=== PATIENT | female | born 1955 | race Caucasian/White ===

== ENCOUNTER 2016-08-23 10:45 | Outpatient (CLI) | payer MEDICARE | END 2016-08-23 10:46 | disposition home or self-care (01) | DX: E03.9 Hypothyroidism, unspecified (principal); I10 Essential (primary) hypertension; E10.40 Type 1 diabetes mellitus with diabetic neuropathy, unspecified; E10.319 Type 1 diabetes mellitus with unspecified diabetic retinopathy without macular edema; Z79.899 Other long term (current) drug therapy ==

== ENCOUNTER 2016-09-03 13:20 | Outpatient (CLI) | payer MEDICARE | END 2016-09-03 13:21 | disposition home or self-care (01) | DX: Z12.31 Encounter for screening mammogram for malignant neoplasm of breast (principal) ==

== ENCOUNTER 2018-01-30 19:56 | Emergency (ER) | payer MEDICARE ==
[2018-01-30] MEDS ORDERED: BENZONATATE 100 MG CAPSULE PO STA (20:12)
--- NOTE | 2018-01-30 20:14 | ED Physician Documentation ---
PD HPI URI - Stated complaint Stated Complaint: Congestion - Chief complaint Chief Complaint: Resp - History of Present Illness Timing duration: Days (3) Timing details: Gradual onset Severity Comments: mild Associated symptoms: Ear pain, Nasal congestion, Rhinorrhea, Dry cough. No: Fever, Chills, Sinus pain, Productive cough, Hemoptysis, Chest pain, Bilateral edema, Unilateral edema Contributing factors: No: Sick contact, COPD / asthma Improves by: Nothing Similar symptoms before: No diagnosis Recently seen: Not recently seen - Additional information Additional information: 62-year-old female presents the emergency department with 3 days of nasal congestion, ear pain, cough and sore throat. The patient had an episode of shortness of breath which cleared spontaneously. The patient denies chest pain , dyspnea on exertion, peripheral edema. Currently symptoms are described as mild. No other associated symptoms Review of Systems Constitutional: reports: Fatigue. denies: Fever, Chills Eyes: denies: Discharge Ears: reports: Ear pain Nose: reports: Rhinorrhea / runny nose, Congestion Throat: reports: Sore throat Cardiac: denies: Chest pain / pressure, Pedal edema Respiratory: reports: Cough. denies: Dyspnea Skin: denies: Rash Musculoskeletal: denies: Neck pain Immunocompromised: denies: Chemotherapy PD PAST MEDICAL HISTORY - Past Medical History Past Medical History: Yes Cardiovascular: Deep vein thrombosis, Murmur Respiratory: Pneumonia Endocrine/Autoimmune: Type 1 diabetes, HyPOthyroidism GI: None : Kidney stones HEENT: Other Psych: Depression Musculoskeletal: None Derm: None - Past Surgical History Past Surgical History: Yes Ortho: Amputation, Other Derm: Skin grafts, Debridement - Present Medications Home Medications: Ambulatory Orders Medication Instructions Recorded Confirmed Aspirin 1 tab PO DAILY 09/13/15 04/11/16 Hydrochlorothiazide 12.5 mg PO DAILY 09/13/15 04/11/16 Insulin Glargine [Lantus Solostar] 10 units SQ QPM 09/13/15 01/09/16 Insulin Glargine [Lantus Solostar] 20 units SQ QDBREAKFAST 09/13/15 04/11/16 Insulin Lispro [Humalog Kwikpen 5 - 10 units SQ DAILY 09/13/15 04/11/16 U-100] Levothyroxine Sodium 112 mcg PO DAILY 09/13/15 04/11/16 Lisinopril 5 mg PO DAILY 09/13/15 04/11/16 Cholecalciferol (Vitamin D3) 1 cap PO DAILY 09/14/15 04/11/16 [Vitamin D] Multivitamin [Multivitamins] 1 cap PO DAILY 09/14/15 04/11/16 Bacillus Coagulans [Probiotic] 1 each PO DAILY 01/09/16 04/11/16 Ibuprofen 400 mg PO QPM 01/09/16 04/11/16 Benzonatate [Tessalon Perle] 100 - 200 mg PO TID PRN #30 capsule 01/30/18 - Allergies Allergies/Adverse Reactions: Allergies Allergy/AdvReac Type Severity Reaction Status Date / Time oxycodone HCl * Allergy Rash Verified 01/30/18 20:08 [From Percodan] oxycodone terephthalate * Allergy Rash Verified 01/30/18 20:08 [From Percodan] amoxicillin trihydrate * AdvReac Nausea Verified 01/30/18 20:08 [From Augmentin] potassium clavulanate * AdvReac Nausea Verified 01/30/18 20:08 [From Augmentin] - Social History Does the pt smoke?: No Smoking Status: Never smoker Does the pt drink ETOH?: Yes Does the pt have substance abuse?: No - POLST Patient has POLST: No PD ED PE NORMAL - General General: Alert and oriented X 3, No acute distress, Well developed/nourished - HEENT HEENT: Atraumatic, PERRL, EOMI, Ears normal, Moist mucous membranes - Neck Neck: Supple, no meningeal sign - Cardiac Cardiac: RRR, Strong equal pulses - Respiratory Respiratory: No respiratory distress, Clear bilaterally - Derm Derm: Normal color - Extremities Extremities: No deformity, No edema - Neuro Neuro: Alert and oriented X 3, Normal speech - Psych Psych: Normal mood Results - Vitals Vitals: Vital Signs - 24 hr 01/30/18 19:59 Temperature 36.6 C Heart Rate 95 Respiratory 18 Rate Blood Pressure 144/75 H O2 Saturation 97 Oxygen O2 Source Room air - Rads (name of study) CXR Radiology: Final report received PD MEDICAL DECISION MAKING - ED course ED course: The patient's symptoms seem to represent a viral process and the patient appears appropriate for discharge home and outpatient management. I discussed with the patient warning signs for decompensation and recommended returning to the emergency department immediately for any worsening or any concerns - Sepsis Event Vital Signs: Vital Signs - 24 hr 01/30/18 19:59 Temperature 36.6 C Heart Rate 95 Respiratory 18 Rate Blood Pressure 144/75 H O2 Saturation 97 Oxygen O2 Source Room air Departure - Departure Disposition: 01 Home, Self Care Clinical Impression: URI (upper respiratory infection) Qualifiers: URI type: unspecified viral URI Qualified Code(s): J06.9 - Acute upper respiratory infection, unspecified Condition: Good Instructions: ED Upper Resp Infec No Abx Tx Follow-Up: Anca Hamilton PA-C [Primary Care Provider] - Within 1 week Prescriptions: Benzonatate [Tessalon Perle] 100 - 200 mg PO TID PRN #30 capsule PRN Reason: Cough Comments: Please return to the ED for worsening symptoms or any concerns
--- NOTE | 2018-01-30 20:53 | XRAY Report ---
Procedure Date: 01/30/2018 Accession Number: [id number] / [id number] Procedure: XR - Chest 2 View X-Ray CPT Code: 35359 FULL RESULT: EXAM: CHEST RADIOGRAPHY EXAM DATE: 01/30/2018 08:35 PM. CLINICAL HISTORY: Cough, sob. COMPARISON: CHEST 2 VIEW PA/LAT 10/19/2013. TECHNIQUE: 2 views. FINDINGS: Lungs/Pleura: No focal opacities evident. No pleural effusion. No pneumothorax. Normal volumes. Mediastinum: Heart and mediastinal contours are unremarkable. Other: None. IMPRESSION: Normal 2-view chest radiography. RADIA
[2018-01-30 21:04] VITALS: BP 127/71
== END 2018-01-30 21:05 | disposition home or self-care (01) ==
LOC: ED 19:56
DX: J06.9 Acute upper respiratory infection, unspecified (principal); E10.9 Type 1 diabetes mellitus without complications; E03.9 Hypothyroidism, unspecified; Z79.82 Long term (current) use of aspirin; Z86.718 Personal history of other venous thrombosis and embolism
CPT/HCPCS: 71046; 99283; A9270

== ENCOUNTER 2018-07-30 16:03 | Outpatient (CLI) | payer MEDICARE ==
[2018-07-30 16:14] LABS: HGB - HEMOGLOBIN 12.9 g/dL (12.0-16.0)
[2018-07-30 16:30] LABS: CREATININE,URINE 60.9 mg/dL; MICROALBUM/CREATININE RATIO,UR 4.9 ug/mg (<30.0); MICROALBUMIN,URINE 0.3 mg/dL (0-300.0)
[2018-07-30 16:32] LABS: HB2 TOTAL 13.6 g/dL; HEMOGLOBIN A1C 1.08 g/dL; HEMOGLOBIN A1C % 9.4 % (4.6-6.2)
[2018-07-30 16:33] LABS: ALKALINE PHOSPHATASE 77 IU/L (42-121); ALT ALANINE AMINOTRANSFERASE 44 IU/L (10-60); AST ASPARTATE AMINOTRANSFERASE 34 IU/L (10-42); BILIRUBIN,DIRECT 0.1 mg/dL (0.1-0.5); BILIRUBIN,TOTAL 0.7 mg/dL (0.2-1.0); CHOL/HDL RATIO 2.3 (<4.4); CHOLESTEROL 191 mg/dL; GFR - MDRD 57 (>89); HDL CHOLESTEROL 83 mg/dL; LDL CHOLESTEROL,CALCULATED 93 mg/dL; LDL/HDL RATIO 1.1 (<4.4); TOTAL PROTEIN 7.1 g/dL (6.7-8.2); VLDL CHOLESTEROL 15 mg/dL
== END 2018-07-30 16:04 | disposition home or self-care (01) ==
LOC: LAB 16:03
PROVIDERS: ATTEND Internal Medicine Endocrinology, Diabetes & Metabolism
DX: E10.8 Type 1 diabetes mellitus with unspecified complications (principal)
CPT/HCPCS: 36415; 80061; 80076; 82043; 82565; 82570; 83036; 83721; 85014; 85018

== ENCOUNTER 2018-08-20 15:30 | Outpatient (CLI) | payer MEDICARE | END 2018-08-20 23:59 | disposition home or self-care (01) | LOC: LAB.R 15:30 | PROVIDERS: ATTEND Nurse Practitioner Primary Care | DX: N30.00 Acute cystitis without hematuria (principal) | CPT/HCPCS: 87086; 87181 ==

== ENCOUNTER 2019-01-12 09:55 | Outpatient (CLI) | payer MEDICARE ==
--- NOTE | 2019-01-12 15:43 | Mammography Report ---
Reason: ENCNTR SCREEN MAMMOGRAM FOR MALIGNANT NEOPLASM OF Procedure Date: 01/12/2019 Accession Number: [id number] / [id number] Procedure: MGS - Screening Mammo Dig Bilat CPT Code: FULL RESULT: EXAM: Screening Mammo Dig Bilat DATE: 01/12/2019 10:42 AM CLINICAL HISTORY: Screening examination. History of early menses. TECHNIQUE: (B) - Bilateral CC, laterally exaggerated CC, MLO views were obtained. COMPARISON: 09/03/2016 through 11/09/2013. PARENCHYMAL PATTERN: (D) - The breast(s) demonstrate(s) heterogeneously dense fibroglandular parenchyma. FINDINGS: There are typically benign vascular calcifications. There are no suspicious masses, calcifications, or areas of distortion. IMPRESSION: Benign findings. BI-RADS category 2. RECOMMENDATION: (ANNUAL) - Recommend routine annual screening mammography. BI-RADS CATEGORY: (2) - Benign Findings. STANDARD QUALIFYING STATEMENTS: 1. This examination was not reviewed with the aid of Computer-Aided Detection (CAD). 2. A negative or benign imaging report should not preclude biopsy if clinically suspicious findings are present. 3. Dense breasts may obscure an underlying neoplasm. 4. This examination was reviewed without the aid of 3D breast imaging (tomosynthesis).
== END 2019-01-12 09:56 | disposition home or self-care (01) ==
LOC: DI.S 09:55
PROVIDERS: ATTEND Internal Medicine
DX: Z12.31 Encounter for screening mammogram for malignant neoplasm of breast (principal)
CPT/HCPCS: 77067

== ENCOUNTER 2020-02-14 08:00 | Outpatient (CLI) | payer MEDICARE | END 2020-02-14 23:59 | disposition home or self-care (01) | LOC: LAB.R 08:00 | PROVIDERS: ATTEND Physician Assistant | DX: R30.0 Dysuria (principal) | CPT/HCPCS: 87086 ==

== ENCOUNTER 2021-06-21 13:36 | Outpatient (CLI) | payer MEDICARE ==
--- NOTE | 2021-06-22 10:31 | Mammography Report ---
BILATERAL DIGITAL SCREENING MAMMOGRAM 3D/2D: 06/21/2021 CLINICAL: Routine screening. Comparison is made to exams dated: 01/12/2019 mammogram, 09/03/2016 mammogram, 06/07/2015 mammogram, 10/29 mammogram, and 05/09/2010 mammogram - [facility]. The tissue of both breasts is predominantly fatty. There is a possible asymmetry in the right breast posterior depth central to the nipple seen on the m ediolateral oblique view only. There is architectural distortion associated with the asymmetry. There is an asymmetry in the left breast middle depth central to the nipple seen on the mediolateral oblique view only. No other significant masses or calcifications are seen in either breast. IMPRESSION: INCOMPLETE: NEEDS ADDITIONAL IMAGING EVALUATION The possible asymmetry in the right breast posterior depth central to the nipple seen on the mediolat eral oblique view only is indeterminate. Additional views with possible ultrasound are recommended. The asymmetry in the left breast middle depth central to the nipple seen on the mediolateral oblique view only is indeterminate. Additional views with possible ultrasound are recommended. This exam was interpreted at Station ID: [id number]. NOTE: For mammograms, a report in lay terms will be sent to the patient. Approximately 15% of breast malignancies will not be visualized mammographically. In the management of a palpable breast mass, a negative mammogram must not discourage biopsy of a clinically suspicious lesion. Electronically Signed By: Marcus Carnes M.D., jr/silvino:06/21/2021 16:22:08 ACR BI-RADS Category 0: Incomplete 3340F PARENCHYMAL PATTERN: (F) - The breast(s) demonstrate(s) diffuse fatty replacement. BI-RADS CATEGORY: (0) - 0 Mammo and [place] [id number] Immediate follow-up LATERALITY: (B)
== END 2021-06-21 13:37 | disposition home or self-care (01) ==
LOC: DI 13:36
DX: Z12.31 Encounter for screening mammogram for malignant neoplasm of breast (principal); R92.8 Other abnormal and inconclusive findings on diagnostic imaging of breast

== ENCOUNTER 2021-06-21 13:50 | Outpatient (CLI) | payer MEDICARE ==
--- NOTE | 2021-06-21 15:15 | XRAY Report ---
PROCEDURE: Chest 2 View X-Ray INDICATIONS: COUGH TECHNIQUE: 2 view(s) of the chest. COMPARISON: January 30, 2018 FINDINGS: SUPPORT DEVICES: None. LUNGS/PLEURA: No focal consolidation, pleural effusion or space-occupying pneumothorax. MEDIASTINUM: The cardiomediastinal silhouette is within normal limits. BONES/SOFT TISSUES: No acute abnormality. IMPRESSION: 1.No acute cardiopulmonary abnormality. Reviewed by: Ronan Carranza MD on 06/21/2021 3:13 PM [facility] Approved by: Ronan Carranza MD on 06/21/2021 3:13 PM [facility] Station ID: [id number]
== END 2021-06-21 13:51 | disposition home or self-care (01) ==
LOC: DI 13:50
PROVIDERS: ATTEND Internal Medicine
DX: R05.9 Cough, unspecified (principal)

== ENCOUNTER 2022-08-09 12:10 | Outpatient (CLI) | payer MEDICARE ==
--- NOTE | 2022-08-09 16:05 | XRAY Report ---
PROCEDURE: Foot 3 View RT INDICATIONS: INFECTION TOE RIGHT FOOT TECHNIQUE: 3 views of the foot were acquired. COMPARISON: None. FINDINGS: Bones: No acute fracture. There is amputation of most of the fifth digit. 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 Multifocal moderate to severe sublux ations throughout the mid foot. Midfoot collapse is present. No suspicious bony lesions. Soft tissues: No tibiotalar joint effusion. Achilles tendon appears normal. IMPRESSION: 1. Findings consistent with Charcot arthropathy. 2. No fracture. If there is clinical evidence for osteomyelitis, bone scan is recommended for further assessment. Reviewed by: Bob Bautista MD on 08/09/2022 4:04 PM [facility] Approved by: Bob Bautista MD on 08/09/2022 4:04 PM [facility] Station ID: [id number]
== END 2022-08-09 12:11 | disposition home or self-care (01) ==
LOC: DI 12:10
PROVIDERS: ATTEND Internal Medicine
DX: L08.9 Local infection of the skin and subcutaneous tissue, unspecified (principal); R93.6 Abnormal findings on diagnostic imaging of limbs

== ENCOUNTER 2023-02-01 11:13 | Outpatient (CLI) | payer MEDICARE ==
[2023-02-01 11:43] LABS: CALCIUM 9.5 mg/dL (8.5-10.3); CREATININE 0.9 mg/dL (0.6-1.3); POTASSIUM 4.3 mmol/L (3.5-4.5)
[2023-02-01 11:46] LABS: ESTIMATED AVERAGE GLUCOSE 194 mg/dL (70-100); HEMOGLOBIN A1c% 8.4 % (4.27-6.07)
== END 2023-02-01 11:14 | disposition home or self-care (01) ==
LOC: LAB 11:13
PROVIDERS: ATTEND Podiatrist
DX: Z01.818 Encounter for other preprocedural examination (principal); R73.9 Hyperglycemia, unspecified
CPT/HCPCS: 36415; 80048; 83036; 93005